=== PATIENT | male | born 1980 | race Caucasian/White ===

== ENCOUNTER 2022-05-31 09:19 | Emergency (ER) | payer OTHER ==
[2022-05-31] MEDS: Lidocaine 1% 5 ML VIAL INJECT ONE (10:01)
[2022-05-31] MEDS: Bacitracin/Neomycin/Polymyxin B Oint 0.9 GM U/D Packet TOP ONE ×2 (11:16→11:39)
[2022-05-31] MEDS: cefTRIAXone 1 GM, Lidocaine 1% 1.2 ML IM SCH ×2 (11:39)
== END 2022-05-31 12:13 | disposition home or self-care (01) ==
LOC: CC.ED 09:19
DX: S62.631B Displaced fracture of distal phalanx of left index finger, initial encounter for open fracture (principal); W22.09XA Striking against other stationary object, initial encounter
CPT/HCPCS: 12001; 73140-F1; 96372; 99283; J0696